=== PATIENT | female | born 1965 | race Caucasian/White ===

== ENCOUNTER 2019-09-16 13:34 | Emergency (ER) | payer OTHER, SELFPAY ==
[~2019-09-16] VITALS: Ht 162.6 cm; Wt 72.9 kg
[2019-09-16 13:40] VITALS: BP 144/74
--- NOTE | 2019-09-16 14:18 | NUR ---
Dr. Del Toro at bedside to evaluate pt. Pt speaking in full sentences, resp even and unlabored. Pt c/o pain in R ear.
[2019-09-16 15:16] LABS: BASOPHILS # (AUTO) 0.04 x10^3/uL (0-0.1); BASOPHILS % (AUTO) 0 % (0-1); EOSINOPHILS # (AUTO) 0.09 x10^3/uL (0-0.4); EOSINOPHILS % (AUTO) 1 % (1-7); LYMPHOCYTES # (AUTO) 3.28 x10^3/uL (1-3.4); LYMPHOCYTES % (AUTO) 30 % (22-44); MD NO; MEAN CORPUSCULAR HEMOGLOBIN 29.8 pg (27.0-34.8); MEAN CORPUSCULAR HGB CONC 33.2 g/dL (32.4-35.8); MEAN CORPUSCULAR VOLUME 89.8 fL (80-100); MEAN PLATELET VOLUME 11.6 fL (7.4-10.4); MONOCYTES # (AUTO) 0.92 x10^3/uL (0.2-0.8); MONOCYTES % (AUTO) 9 % (2-9); NEUTROPHILS # (AUTO) 6.45 x10^3/uL (1.8-6.8); NEUTROPHILS % (AUTO) 60 % (42-75); PLATELET COUNT 261 x10^3/uL (130-400); RED BLOOD COUNT 4.88 x10^6/uL (3.82-5.3); RED CELL DISTRIBUTION WIDTH 13.8 % (9.6-15.2)
[2019-09-16 15:29] LABS: ALANINE AMINOTRANSFERASE 26 U/L (12-78); ALBUMIN 3.7 g/dL (3.4-5.0); CALCIUM 8.9 mg/dL (8.5-10.1); CREATININE 0.58 mg/dL (0.55-1.02)
[2019-09-16 15:31] LABS: ALKALINE PHOSPHATASE 72 U/L (45-117); BILIRUBIN,TOTAL 0.5 mg/dL (0.2-1.0); TOTAL PROTEIN 7.2 g/dL (6.4-8.2)
[2019-09-16 15:44] LABS: ANION GAP 7 mmol/L (5-15); CHLORIDE 110 mmol/L (98-107)
[2019-09-16] MEDS ORDERED: PROPARACAINE OPHTH 0.5%, 15ML ONE (15:48)
--- NOTE | 2019-09-16 15:53 | NUR ---
Pt c/o R ear pain and throat pain. Discussed with Dr. Del Toro.
[2019-09-16] MEDS ORDERED: KETOROLAC 30 MG/1 ML ONE (15:58)
[2019-09-16] MEDS ORDERED: KETOROLAC 30 MG/1 ML IM ONE (16:00)
[2019-09-16] MEDS ORDERED: PROPARACAINE OPHTH 0.5%, 15ML HOMEOPHTH ONE (16:00)
--- NOTE | 2019-09-16 16:06 | NUR ---
Pt medicated per MAR, denies other needs.
--- NOTE | 2019-09-16 16:38 | NUR ---
Pt states ear drops helped her ear pain.
== END 2019-09-16 17:03 | disposition home or self-care (01) ==
LOC: ED 15:33
DX: H66.001 Acute suppurative otitis media without spontaneous rupture of ear drum, right ear (principal); H60.91 Unspecified otitis externa, right ear; J01.00 Acute maxillary sinusitis, unspecified; E11.9 Type 2 diabetes mellitus without complications; Z90.49 Acquired absence of other specified parts of digestive tract
CPT/HCPCS: 36415; 71046; 80053; 82962; 85025; 86308; 96372; 99284; J1885

== ENCOUNTER 2019-12-06 19:36 | Emergency (ER) | payer BC ==
[~2019-12-06] VITALS: Ht 162.6 cm; Wt 66.2 kg
--- NOTE | 2019-12-06 19:55 | NUR ---
PT C/O PRODUCTIVE COUGH X4 DAYS. DENIES ANYONE AT HOME SICK. CONNECTED TO MONITORING. CALL LIGHT IN REACH. AWAITING ORDERS AT THIS TIME.
[2019-12-06 20:42] LABS: RAPID INFLUENZA A Negative (Negative); RAPID INFLUENZA B Negative (Negative)
[2019-12-06 20:47] LABS: BASOPHILS # (AUTO) 0.01 x10^3/uL (0-0.1); BASOPHILS % (AUTO) 0 % (0-1); EOSINOPHILS # (AUTO) 0.04 x10^3/uL (0-0.4); EOSINOPHILS % (AUTO) 1 % (1-7); LYMPHOCYTES # (AUTO) 3.48 x10^3/uL (1-3.4); LYMPHOCYTES % (AUTO) 55 % (22-44); MD NO; MEAN CORPUSCULAR HEMOGLOBIN 29.8 pg (27.0-34.8); MEAN CORPUSCULAR HGB CONC 33.5 g/dL (32.4-35.8); MEAN PLATELET VOLUME 11.1 fL (7.4-10.4); MONOCYTES # (AUTO) 0.67 x10^3/uL (0.2-0.8); MONOCYTES % (AUTO) 11 % (2-9); NEUTROPHILS # (AUTO) 2.14 x10^3/uL (1.8-6.8); NEUTROPHILS % (AUTO) 34 % (42-75); PLATELET COUNT 249 x10^3/uL (130-400); RED BLOOD COUNT 4.82 x10^6/uL (3.82-5.3); RED CELL DISTRIBUTION WIDTH 12.9 % (9.6-15.2)
[2019-12-06 20:59] LABS: ALBUMIN 3.2 g/dL (3.4-5.0); ANION GAP 7 mmol/L (5-15); CALCIUM 8.2 mg/dL (8.5-10.1); CHLORIDE 108 mmol/L (98-107); CREATININE 0.56 mg/dL (0.55-1.02)
[2019-12-06 21:18] LABS: ACETONE, SERUM Negative (Negative)
[2019-12-06 21:30] VITALS: BP 123/67
== END 2019-12-06 21:32 | disposition home or self-care (01) ==
LOC: ED 21:25
DX: B34.9 Viral infection, unspecified (principal); R07.89 Other chest pain; I11.9 Hypertensive heart disease without heart failure; E11.9 Type 2 diabetes mellitus without complications
CPT/HCPCS: 36415; 71045; 80048; 82010; 82040; 82800; 85025; 87400; 93005; 99285

== ENCOUNTER 2020-02-17 12:46 | Emergency (ER) | payer BC, OTHER ==
[~2020-02-17] VITALS: Ht 162.6 cm; Wt 76.4 kg
--- NOTE | 2020-02-17 13:12 | NUR ---
PT CAME IN CO OF SORE THROAT AND FEVERS OF "103 AT HOME". PT WAS AFEBRILE IN TRIAGE. MD IS BEDSIDE FOR ASSESSMENT
[2020-02-17 14:00] VITALS: BP 112/71
--- NOTE | 2020-02-17 14:01 | NUR ---
PT RESTING IN [facility]. NAD. VSS
== END 2020-02-17 14:39 | disposition home or self-care (01) ==
LOC: ED 13:12
DX: J06.9 Acute upper respiratory infection, unspecified (principal); Z20.828 Contact with and (suspected) exposure to other viral communicable diseases; E11.9 Type 2 diabetes mellitus without complications; I10 Essential (primary) hypertension
CPT/HCPCS: 71046; 87081; 87880; 99284; U0001